=== PATIENT | female | born 1985 | race Caucasian/White ===

== ENCOUNTER 2024-05-26 08:40 | Emergency (ER) | payer SELFPAY ==
[2024-05-26 08:46] VITALS: BP 153/94; PULSE 103; RESP 20; TEMP 36.6; O2SAT 100
--- NOTE | 2024-05-26 09:05 | ED.SKABFB ---
HPI - Skin/Abscess/Foreign Bdy General Chief complaint: Skin/Abscess/Foreign Body Stated complaint: Skin Sore Time Seen by Provider: 05/26/24 09:00 Source: patient, RN notes reviewed and old records reviewed Mode of arrival: ambulatory Limitations: no limitations History of Present Illness HPI narrative: 39year old female who presents to [facility] care with complaints of having pea size lesion to the left upper inner thigh for about 1 month duration which has increased in size over the past 2--3 days and is now painful to touch with no acute redness noted. Patient reports that she has bee applying Prid salve to area without improvement to wound induration noted with no fluctuance of tissue. Patient denies any fevers chills or sweats. MD complaint: abscess/boil Onset (ago): month(s) (initial small pea size raised has grown in size in past 2-3 days) Location: LLE (left upper inner thigh) Severity scale (1-10): 8 Treatments prior to arrival: other (prid) Related Data Home Medications Medication Instructions Recorded Confirmed estradiol 1 mg tablet mg 05/26/24 omeprazole 20 mg capsule,delayed mg 05/26/24 release Allergies Allergy/AdvReac Type Severity Reaction Status Date / Time tramadol AdvReac Severe Siezure Verified 03/03/19 13:46 leuprolide AdvReac Intermediate Other Verified 03/03/19 13:46 lupron-depo AdvReac Intermediate Other Uncoded 09/29/17 14:17 Review of Systems Review of Systems: CONSTITUTIONAL: Denies fever, chills, or sweats. CARDIOVASCULAR: Denies chest pain, palpitations, or edema. RESPIRATORY: Denies cough or dyspnea. GASTROINTESTINAL: Denies abdominal pain, nausea, vomiting SKIN: Reports redness and swelling. with lesion increasing in size in past 2--3 days to left upper inner thigh close to groin, Denies purulent drainage, vesicles, is warm to touch and painful with no fluctuation of tissue noted. MUSCULOSKELETAL: Denies myalgia. NEUROLOGIC: Denies headache, numbness All systems reviewed & are unremarkable except as noted in HPI and below PMFSH Past Medical History Medical History Anxiety and depression Fibromyalgia Kidney stone UTI (urinary tract infection) Surgical History Surgical History H/O: hysterectomy History of appendectomy History of placement of ear tubes Social History Social History Smoking packs per day: 0.5 Smoking cigarettes per day: 10.0 Years smoked: 15 Smoking pack-years: 7.50 Smoking status: Current every day smoker Tobacco type: cigarettes Alcohol intake: former Alcohol use details: no alcohol use now Substance use type: does not use Living arrangements: with family Gender identity (if verbalized by the patient): Female Comments At time of signature, agree with nursing past medical, surgical, social and family history. There is no relevant family history pertinent to the presenting complaint Exam Narrative: GENERAL: Well-appearing, well-nourished, and in no acute distress. HEAD: Normocephalic, atraumatic. EYES: PERRLA and EOMI. ENT: Nares clear, no rhinorrhea or epistaxis. Mucous membranes moist. NECK: Supple.no lymphadenopathy CHEST: Clear to auscultation. No respiratory distress. SAO2 100% on room air HEART: Regular rate and rhythm. No murmur heard. Normal peripheral pulses. ABDOMEN: Soft, nontender, nondistended, normal active bowel sounds. EXTREMITIES: Normal range of motion. No edema. SKIN: Warm, dry. Erythema, induration, tenderness to 1.5cm abscess to left inner upper thigh near groin, warmth and induration no vesicle or pustule, no drainage or any fluctuant tissue NEURO: No focal deficits. Alert and oriented x3. Course Course Emergency Course: Patient is aware of diagnosis, understands and agrees to treatment plan. Anticipatory guidance given. Patient agrees
== END 2024-05-26 09:29 | disposition home or self-care (01) ==
PROVIDERS: Emergency Provider Registered Nurse; PCP Physician Assistant
DX: L02.416 Cutaneous abscess of left lower limb (principal); F17.210 Nicotine dependence, cigarettes, uncomplicated; M79.7 Fibromyalgia
CPT/HCPCS: 99203; G0463

== ENCOUNTER 2024-06-24 10:57 | Emergency (ER) | payer OTHER, SELFPAY ==
--- NOTE | ~2024-06-24 | XR_ITS ---
EXAMINATION: XR ankle LT min 3V DATE: 06/24/2024 11:46 INDICATION: Left ankle injury. TECHNIQUE: 4 views of left ankle were obtained. COMPARISON: None. FINDINGS: Alignment is normal. No fracture. Joint spaces are normal. There is an enthesophyte of post erior aspect of calcaneal tuberosity. IMPRESSION: 1. No fracture. Reviewed, dictated and finalized at location A. [employer] IMPRESSION: 1. No fracture.
--- NOTE | ~2024-06-24 | XR_ITS ---
EXAMINATION: XR foot LT min 3V DATE: 06/24/2024 11:46 INDICATION: Left foot injury. TECHNIQUE: 4 views of left foot were obtained. COMPARISON: None. FINDINGS: Alignment is normal. No fracture. Joint spaces are normal. There is an enthesophyte of post erior aspect of calcaneal tuberosity. IMPRESSION: 1. No fracture. Reviewed, dictated and finalized at location A. STEWARD IMPRESSION: 1. No fracture.
[2024-06-24 11:05] VITALS: BP 137/84; PULSE 95; RESP 18; TEMP 36.6; O2SAT 100
--- NOTE | 2024-06-24 11:10 | ED.LOWEXIN ---
HPI - Extremity Injury (Lower) General Chief Complaint: Extremity Injury, Lower Stated Complaint: WC left foot/ankle injury Time Seen by Provider: 06/24/24 12:12 Source: patient and RN notes reviewed Mode of arrival: ambulatory Limitations: no limitations History of Present Illness HPI Narrative: 39-year-old female presents with concern for left ankle and foot pain. Reports that she rolled the ankle this morning around 9:00 a.m. at work. She reports she cannot put weight on it. She reports history of fibromyalgia and she has injured this ankle before. MD complaint: ankle injury Related Data Home Medications Medication Instructions Recorded Confirmed estradiol 1 mg tablet 1 mg PO DAILY 05/26/24 06/24/24 omeprazole 20 mg capsule,delayed 20 mg PO DAILY 05/26/24 release Allergies Allergy/AdvReac Type Severity Reaction Status Date / Time tramadol AdvReac Severe Siezure Verified 03/03/19 13:46 leuprolide AdvReac Intermediate Other Verified 03/03/19 13:46 lupron-depo AdvReac Intermediate Other Uncoded 09/29/17 14:17 Review of Systems Review of Systems: CONSTITUTIONAL: Denies malaise, chills, sweats, or fever. SKIN: Denies rash or itching, open skin, laceration, abrasion, redness, warmth, swelling. MUSCULOSKELETAL: Reports left foot and ankle pain NEUROLOGIC: Denies numbness, weakness All systems reviewed & are unremarkable except as noted in HPI and below PMFSH Past Medical History Medical History Anxiety and depression Fibromyalgia Kidney stone UTI (urinary tract infection) Surgical History Surgical History H/O: hysterectomy History of appendectomy History of placement of ear tubes Social History Social History Smoking packs per day: 0.5 Smoking cigarettes per day: 10.0 Years smoked: 15 Smoking pack-years: 7.50 Smoking status: Current every day smoker Tobacco type: cigarettes Alcohol intake: former Alcohol use details: no alcohol use now Substance use type: does not use Living arrangements: with family Gender identity (if verbalized by the patient): Female Comments At time of signature, agree with nursing past medical, surgical, social and family history. There is no relevant family history pertinent to the presenting complaint Exam Narrative: GENERAL: Well-appearing, well-nourished, and in no acute distress. HEAD: Normocephalic, atraumatic. EYES: PERRLA, conjunctivae clear NECK: Supple. CHEST: Speaks in full sentences. No respiratory distress. HEART: Regular rate and rhythm. Normal and equal peripheral pulses. EXTREMITIES: Left ankle foot digits have grossly normal strength and sensation, limited normal range of motion. No edema or ecchymosis. Normal sensation with sensitivity to light touch and pain. General tenderness. No open wounds, no skin tenting, no devitalized tissue or atrophy, no trophic changes, no obvious deformity, alignment normal, nearby joints and structures intact. Distal pulses palpable and equal bilaterally, skin warm, dry, pink. Capillary refill less than 3 seconds. SKIN: Warm, dry, no rash. NEURO: Alert and oriented x3. PSYCH: Normal mood and affect Course Course Emergency Course: Patient is aware of diagnosis, understands and agrees to treatment plan. Anticipatory guidance given. Patient agrees to follow-up as directed and is aware of reasons to seek care at the emergency department. Portions of this record may have been created with voice recognition software Level of Care: Express Care Visit Vital Signs Vital signs: Vital Signs Temperature 98 F 06/24/24 11:05 Pulse Rate 95 06/24/24 11:05 Respiratory Rate 18 06/24/24 11:05 Blood Pressure 137/84 06/24/24 11:05 Pulse Oximetry 100 06/24/24 11:05 Oxygen Delivery Room Air 06/24/24 11:05 Temperature 98 F 06/24/24 11:05 Pulse Rate 95 06/24/24 11:05 Respiratory Rate 18 06/24/24 11:05 Blood Pressure 137/84 06/24/24 11:05 Pulse Oximetry 100 06/24/24 11:05 Oxygen Delivery Room Air 06/24/24 11:05 Reviewed. MDM - Extremity Injury (Lower) MDM Narrative Medical decision making narrative: Patients injury and pain is consistent with musculoskeletal etiology. No signs of neurological or vascular compromise on exam. Compartments and tissues are soft without signs of compartment syndrome. Pain is felt appropriate for further evaluation on an outpatient basis. Critical Care Time Critical Care Time Critical Care Time: No Discharge Plan Discharge Clinical Impression: Ankle sprain and strain Patient Disposition: Home, Self-Care Condition: Stable Instructions: Ankle Sprain (ED) Additional Instructions: Avoid activities that cause pain until the pain subsides. Ice to the area 20-30 minutes 4-6 times a day Elevate above heart Elastic wrap as directed for comfort for the next 5-7 days Crutches as directed if needed Tylenol for lesser pain Ibuprofen regularly for the next 2-3 days for the inflammation Follow up with your primary care provider if the condition is not improving within 1 week. If the condition worsens with numbness, tingling, decrease sensation with weakness seek treatment in the emergency room immediately. Prescriptions: No Action estradiol 1 mg tablet 1 mg PO DAILY omeprazole 20 mg capsule,delayed release(DR/EC) 20 mg PO DAILY Follow-up/Referrals: Eloy Donovan MD [Physician] - [facility],GUSTAVO Krishna [Primary Care Provider] - Stand Alone Forms: Work/School Release IP Time of Disposition: 12:20
== END 2024-06-24 12:37 | disposition home or self-care (01) ==
PROVIDERS: Emergency Provider Nurse Practitioner; PCP Physician Assistant
DX: S93.402A Sprain of unspecified ligament of left ankle, initial encounter (principal); X50.9XXA Other and unspecified overexertion or strenuous movements or postures, initial encounter; Y99.0 Civilian activity done for income or pay; M79.7 Fibromyalgia; F17.210 Nicotine dependence, cigarettes, uncomplicated
CPT/HCPCS: 73610; 73630; 99213; G0463